=== PATIENT | female | born 1975 | race African-American/Black ===

== ENCOUNTER 2018-07-31 00:48 | Emergency (ER) | payer OTHER ==
[2018-07-31] MEDS ORDERED: IPRATROPIUM/ALBUTEROL 0.5-2.5 MG/3 ML AMPUL NEB ONE ×2 (01:28→02:01)
[2018-07-31] MEDS ORDERED: PREDNISONE 20 MG TABLET PO ONE (01:28)
--- NOTE | 2018-07-31 01:37 | ER Document Report ---
ED General - General Chief Complaint: Shortness Of Breath Stated Complaint: SHORTNESS OF BREATH Time Seen by Provider: 07/31/18 01:37 Notes: Patient is a 43-year-old female with history of asthma that presents to the emergency department for chief complaint of shortness of breath. Patient states she is been having increased shortness of breath and wheezing over the past 10 days, she has been using her albuterol and Spiriva, without much help of her symptoms. She decided come to the emergency department because she was not improving. She has had a dry cough associated with this as well. Denies noting any fevers, chills, night sweats, chest pain, nausea, vomiting or abdominal pain. Past Medical History: Asthma, CHF, diabetes mellitus, hypertension Past Surgical History: , cholecystectomy Social History: Denies tobacco, alcohol or drug use Family History: Reviewed and noncontributory for presenting illness Allergies: Reviewed, see documented allergy list. REVIEW OF SYSTEMS: Unless otherwise stated in this report the patient's positive and negative responses for review of systems for constitutional, eyes, ENT, cardiovascular, respiratory, gastrointestinal, neurological, genitourinary, musculoskeletal, and integumentary systems and related systems to the presenting problem are either as stated in the HPI or were not pertinent or were negative for the symptoms and/or complaints related to the presenting medical problem. PHYSICAL EXAMINATION: Vital signs reviewed, nursing noted reviewed. GENERAL: Obese female and in no acute distress. HEAD: Atraumatic, normocephalic. EYES: Eyes appear normal, extraocular movements intact, sclera anicteric, conjunctiva are normal. ENT: nares patent, oropharynx clear without exudates. Moist mucous membranes. NECK: Normal range of motion, supple without lymphadenopathy LUNGS: Faint expiratory wheezing noted on exam in all lung schneider and equal bilaterally. No respiratory distress. HEART: Regular rate and rhythm without murmurs ABDOMEN: Soft, nontender, normoactive bowel sounds. No rebound, guarding, or rigidity. No masses appreciated. EXTREMITIES: Nontender, good range of motion, no pitting or edema. NEUROLOGICAL: No focal neurological deficits. Moves all extremities spontaneously Motor and sensory grossly intact on exam. PSYCH: Normal mood, normal affect. SKIN: Warm, Dry, normal turgor, no rashes or lesions noted on exposed skin TRAVEL OUTSIDE OF THE [place] IN LAST 30 DAYS: No Past Medical History - Social History Smoking Status: Never Smoker Family History: Reviewed & Not Pertinent Physical Exam - Vital signs Vitals: Temp Pulse Resp BP Pulse Ox 98.7 F 74 22 H 168/104 H 94 07/31/18 00:48 07/31/18 00:48 07/31/18 00:48 07/31/18 00:48 07/31/18 00:48 Course - Re-evaluation Re-evalutation: Patient seen and examined vital signs reviewed. Laboratory data and imaging were ordered as appropriate for the patient's presenting symptoms and complaint, with consideration of any critical or life threatening conditions that may be associated with their obtained history and exam as noted above. Patient was treated with DuoNeb breathing treatments, and prednisone, patient was having nausea after breathing treatment, was given Zofran and Phenergan to help with this. Results were reviewed when available and demonstrated chest x-ray negative for acute findings The patient was re-evaluated and was improved, not hypoxic Evaluation was most consistent with acute asthma exacerbation, patient be discharged with a prescription for prednisone for 4 additional days, advised to use her albuterol inhaler every 4 hours for the next 2-3 days, and to follow-up with her primary care physician, if her symptoms worsen to return. Results were discussed with the patient at this point, after careful consideration I feel that that patient can be discharged from the emergency department, the patient was educated treatments and reasons to return to the emergency department based on their presumed diagnosis as noted above, they were advised to followup with a primary care physician in 2-3 days. Patient was agreeable to plan of care. *Note is created using voice recognition software and may contain spelling, syntax or grammatical errors. Chest X-Ray 07/31/18 01:28 IMPRESSION: 1. No acute pulmonary process identified. - Vital Signs Vital signs: Temp Pulse Resp BP Pulse Ox 98.7 F 74 24 H 168/104 H 94 07/31/18 00:48 07/31/18 00:48 07/31/18 01:53 07/31/18 00:48 07/31/18 00:48 Discharge - Discharge Clinical Impression: Acute asthma exacerbation Qualifiers: Asthma severity: unspecified severity Asthma persistence: unspecified Qualified Code(s): J45.901 - Unspecified asthma with (acute) exacerbation Condition: Stable Disposition: HOME, SELF-CARE Instructions: Asthma ([facility]) Additional Instructions: Please return to the emergency department if you have any worsening, or concern of your symptoms. Please return to the emergency department if you develop chest pain, difficulty breathing, severe abdominal pain, or ongoing vomiting. Please follow-up with your primary care physician in 2-3 days and any other recommended physicians. If prescribed, take all medications as directed. If you have any questions or concerns do not hesitate to return the emergency department for evaluation. Continue using your albuterol inhaler, 2 puffs every 4 hours for the next 3 days , and then you can reduce this to as needed. Prescriptions: Prednisone [Deltasone 20 mg Tablet] 3 tab PO DAILY 4 Days #12 tablet Referrals: YI ARMAS MD [[facility]ED STAFF] - Follow up in 3-5 days (or your primary care. )
[2018-07-31] MEDS: ALBUTEROL SULFATE 0.083% NEB 2.5 MG/3 ML AMPUL NEB SCH ×2 (01:46→02:51)
[2018-07-31] MEDS ORDERED: ONDANSETRON HCL INJ/PF 4 MG/2 ML SDV IV ONE (02:00)
[2018-07-31] MEDS ORDERED: ONDANSETRON 4 MG TAB.RAPDIS PO ONE (02:03)
--- NOTE | 2018-07-31 02:09 | RADIOLOGY REPORT (SQ) ---
EXAM DESCRIPTION: XR CHEST 1 VIEW COMPLETED DATE/TME: 07/31/2018 01:28 CLINICAL HISTORY: SOB COMPARISON: None. FINDINGS: Single frontal view of the chest. Wires and leads overlie the chest. Low lung volumes. The cardiomediastinal silhouette has normal size and contour. No consolidation, pneumothorax, or pleural effusion. No displaced rib fractures identified. Upper abdominal soft tissues are unremarkable. IMPRESSION: 1. No acute pulmonary process identified.
[2018-07-31] MEDS ORDERED: PROMETHAZINE HCL 25 MG TABLET PO ONE (02:44)
[2018-07-31 04:48] VITALS: BP 154/98
--- NOTE | 2018-07-31 10:38 | EKG REPORT ---
SEVERITY:- NORMAL ECG - SINUS RHYTHM : Confirmed by: Flora Carrillo MD 31-Jul-2018 10:38:11
== END 2018-07-31 04:16 | disposition home or self-care (01) ==
LOC: ER 00:48
DX: J45.901 Unspecified asthma with (acute) exacerbation (principal); R06.02 Shortness of breath; I50.9 Heart failure, unspecified; E11.9 Type 2 diabetes mellitus without complications; I10 Essential (primary) hypertension
CPT/HCPCS: 93005; 94640 ×2; 99285; 71045; 93010; S0119; J7512; J7620

== ENCOUNTER 2018-10-18 02:46 | Emergency (ER) | payer SELFPAY ==
[2018-10-18] MEDS ORDERED: PREDNISONE 20 MG TABLET PO ONE (04:40)
[2018-10-18] MEDS ORDERED: IPRATROPIUM/ALBUTEROL 0.5-2.5 MG/3 ML AMPUL NEB ONE (04:40)
[2018-10-18] MEDS ORDERED: IBUPROFEN 800 MG TABLET PO ONE (04:40)
--- NOTE | 2018-10-18 05:19 | RADIOLOGY REPORT (SQ) ---
EXAM DESCRIPTION: XR CHEST 2 VIEWS COMPLETED DATE/TME: 10/18/2018 04:41 CLINICAL HISTORY: 43 years, Female, cough/fever COMPARISON: None. NUMBER OF VIEWS: Two TECHNIQUE: PA and lateral views of the chest LIMITATIONS: None. FINDINGS: The lungs are clear. There are no pleural abnormalities. The cardiac silhouette and pulmonary vessels are normal. IMPRESSION: No acute cardiopulmonary disease. copyright 2010 [employer]- All Rights Reserved
--- NOTE | 2018-10-18 06:16 | ER Document Report ---
ED General - General Chief Complaint: Cold Symptoms Stated Complaint: CHILLS Time Seen by Provider: 10/18/18 03:51 Notes: Patient is a 43-year-old female presents to the emergency department chief complaint of intermittent fever T-max 101, chills, generalized body aches, cough, congestion, increased respiratory distress, 2 episodes of posttussive vomiting and 7 episodes total of diarrhea since Monday. Patient states she also has generalized chest tightness which increases when she takes a deep breath, upon movement and upon deep palpation bilateral anterior ribs. Patient states she did take an at-home albuterol treatment around 130 this morning states that that has not helped at all. Past medical history: Asthma, CHF, hypertension, diabetes, GERD Medications: Albuterol, amlodipine, HCTZ, Lasix, pantoprazole, Flonase, atorvastatin, Symbicort, farxiga, montelukast Allergies: None TRAVEL OUTSIDE OF THE [place] IN LAST 30 DAYS: No Past Medical History - General Information source: Patient - Social History Smoking Status: Never Smoker Chew tobacco use (# tins/day): No Frequency of alcohol use: None Drug Abuse: None Family History: Reviewed & Not Pertinent Patient has suicidal ideation: No Patient has homicidal ideation: No - Past Medical History Cardiac Medical History: Reports: Hx Congestive Heart Failure, Hx Hypertension Pulmonary Medical History: Reports: Hx Asthma Endocrine Medical History: Reports: Hx Diabetes Mellitus Type 2 Renal/ Medical History: Denies: Hx Peritoneal Dialysis GI Medical History: Reports: Hx Gastroesophageal Reflux Disease Past Surgical History: Reports: Hx Section, Hx Cholecystectomy Review of Systems - Review of Systems Constitutional: See HPI EENT: See HPI Cardiovascular: See HPI Respiratory: See HPI Gastrointestinal: See HPI. denies: Abdominal pain Genitourinary: denies: Burning, Dysuria Female Genitourinary: No symptoms reported Musculoskeletal: See HPI Skin: No symptoms reported Hematologic/Lymphatic: No symptoms reported Neurological/Psychological: No symptoms reported Physical Exam - Vital signs Vitals: Temp Pulse Resp BP Pulse Ox 98.4 F 84 26 H 154/117 H 95 10/18/18 02:51 10/18/18 02:51 10/18/18 02:51 10/18/18 02:51 10/18/18 02:51 - Notes Notes: GENERAL: Morbidly obese alert, interacts well. No acute distress. HEAD: Normocephalic, atraumatic. No frontal or maxillary sinus tenderness EYES: Pupils equal, round, and reactive to light. Extraocular movements intact. ENT: Oral mucosa moist, tongue midline. Nares patent, no nasal septal hematoma, TM's intact, nonerythematous, nonbulging bilaterally. Pharynx within normal limits, no palatal petechiae or exudate noted NECK: Full range of motion. Supple. Trachea midline. No lymphadenopathy appreciated LUNGS: Inspiratory and expiratory wheezes noted bilateral lung schneider, no rales, or rhonchi. No respiratory distress HEART: Regular rate and rhythm. No murmur ABDOMEN: Obese soft, non-tender. Non-distended. Bowel sounds present in all 4 quadrants. EXTREMITIES: Moves all 4 extremities spontaneously. No edema, normal radial and dorsalis pedis pulses bilaterally. No cyanosis. BACK: no cervical, thoracic, lumbar midline tenderness. No saddle anesthesia, normal distal neurovascular exam. NEUROLOGICAL: Alert and oriented x3. Normal speech. cranial nerves II through XII grossly intact PSYCH: Normal affect, normal mood. SKIN: Warm, dry, normal turgor. No rashes or lesions noted. Course - Re-evaluation Re-evalutation: After patient finished DuoNeb treatments she states she now has a sharp pain in the left side of his chest. States it feels different than her generalized chest tightness that she had when she arrived to the emergency room. Patient states she feels a lot better as far as her respiratory status is concerned. Patient's lung sounds are now clear and equal in all schneider. Discussed case with Dr. Wallace who recommends a single troponin and a repeat EKG. Patient's EKG shows a sinus rhythm at 92 with a QTC of 525. No ST segment changes noted. This is Virtually unchanged from an EKG when patient arrived to the emergency department ordered by the [facility] nurse which reveals a sinus rhythm 86 with a QTC of [address] segment changes. 10/18/18 07:12 Patient's troponin was negative. She states the sharp chest pain that she amanda cross was having is now somewhat relieved. States it is intermittent in nature. I continue to believe that this chest pain is due to her upper respiratory infection viral infection, asthma exacerbation. Discussed close follow-up with patient's primary care provider and close return precautions. 10/18/18 07:14 Patient states she has plenty of her albuterol inhaler at home. Spacer was provided to the patient in the emergency department. - Vital Signs Vital signs: Temp Pulse Resp BP Pulse Ox 98.4 F 84 26 H 154/117 H 95 10/18/18 02:51 10/18/18 02:51 10/18/18 02:51 10/18/18 02:51 10/18/18 02:51 Discharge - Discharge Clinical Impression: Bronchitis, Bronchospasm Upper respiratory infection Qualifiers: URI type: unspecified viral URI Qualified Code(s): J06.9 - Acute upper respiratory infection, unspecified Condition: Stable Disposition: HOME, SELF-CARE Instructions: Upper Respiratory Illness ([facility]), Bronchitis With Bronchospasm (Wheezing) ([facility]) Additional Instructions: As we discussed you have been seen and treated in the emergency department for an upper respiratory infection. You should continue to use your albuterol inhaler every 4 hours as needed. Please take prescription steroids as prescribed. Please make sure you keep a close eye on your blood sugar as steroids can affect your blood sugar readings. Please make sure you follow-up with your primary care provider in the next 24-48 hours. Please return to the emergency room should you have any other concerning symptoms. Prescriptions: Prednisone [Deltasone 20 mg Tablet] 3 tab PO DAILY 5 Days tablet Forms: Elevated Blood Pressure
[2018-10-18 07:59] VITALS: BP 163/92
--- NOTE | 2018-10-18 09:20 | EKG REPORT ---
SEVERITY:- ABNORMAL ECG - SINUS RHYTHM PROLONGED QT INTERVAL : Confirmed by: Vee Acosta 18-Oct-2018 09:18:43
--- NOTE | 2018-10-18 09:20 | EKG REPORT ---
SEVERITY:- ABNORMAL ECG - SINUS RHYTHM PROLONGED QT INTERVAL : Confirmed by: Vee Acosta 18-Oct-2018 09:18:47
== END 2018-10-18 07:58 | disposition home or self-care (01) ==
LOC: ER 02:46
DX: J20.9 Acute bronchitis, unspecified (principal); J06.9 Acute upper respiratory infection, unspecified; E66.01 Morbid (severe) obesity due to excess calories; I50.9 Heart failure, unspecified; I11.0 Hypertensive heart disease with heart failure; E11.9 Type 2 diabetes mellitus without complications; Z90.49 Acquired absence of other specified parts of digestive tract
CPT/HCPCS: 93005; 94640; 99284; 36415; 84484; 71046; 93010; J7512; J7620

== ENCOUNTER 2019-10-27 17:43 | Emergency (ER) | payer BC ==
--- NOTE | 2019-10-27 20:13 | ER Document Report ---
ED Medical Screen (RME) - General Chief Complaint: High Blood Pressure Stated Complaint: DIZZINESS, SHORTNESS OF BREATH Time Seen by Provider: 10/27/19 19:46 Notes: Patient is a 44-year-old female with a history of congestive heart failure, hyp ertension, type 2 diabetes and asthma who presents the emergency department with multiple complaints. Patient reports she does have a history of elevated blood pressure and is on multiple medications. Patient reports she did have a lapse in her insurance and over the past month has been cutting her medications in half. Patient reports that she never ran out of her medications but was not taking them as prescribed. She reports that she did see her primary care provider on , and was given the correct dosages of her metoprolol, amlodipine and hydrochlorothiazide. Patient reports since then she has had intermittent elevated blood pressure. Patient reports today she checked her blood pressure is 182/128. Patient reports she has had some lightheadedness some shortness of breath and some chest pain. Patient reports today she had to stop cleaning the house that she was having chest pain. TRAVEL OUTSIDE OF THE [place] IN LAST 30 DAYS: No - Related Data Allergies/Adverse Reactions: No Known Allergies Allergy (Unverified 10/27/19 19:36) Home Medications: Furosemide, metoprolol, farxiga, amlodipine, atorvastatin, hydrochlorothiazide Past Medical History - Social History Frequency of alcohol use: Social - Past Medical History Cardiac Medical History: Reports: Hx Congestive Heart Failure, Hx Hypertension Pulmonary Medical History: Reports: Hx Asthma Endocrine Medical History: Reports: Hx Diabetes Mellitus Type 2 Renal/ Medical History: Denies: Hx Peritoneal Dialysis GI Medical History: Reports: Hx Gastroesophageal Reflux Disease Past Surgical History: Reports: Hx Section, Hx Cholecystectomy Physical Exam - Vital signs Vitals: Temp Pulse Resp BP Pulse Ox 98.5 F 79 20 156/88 H 97 10/27/19 18:16 10/27/19 18:16 10/27/19 18:16 10/27/19 18:16 10/27/19 18:16 - Respiratory Respiratory status: No respiratory distress Chest status: Nontender Breath sounds: Normal Chest palpation: Normal Course - Re-evaluation Re-evalutation: 10/27/19 20:15 I have greeted and performed a rapid initial assessment of this patient. A comprehensive ED assessment and evaluation of the patient, analysis of test results and completion of the medical decision making process will be conducted by additional ED providers. - Vital Signs Vital signs: Temp Pulse Resp BP Pulse Ox 98.5 F 79 20 156/88 H 97 10/27/19 18:16 10/27/19 18:16 10/27/19 18:16 10/27/19 18:16 10/27/19 18:16
[2019-10-27 21:11] LABS: APPEARANCE,URINE CLEAR; BILIRUBIN,URINE NEGATIVE (NEGATIVE); COLOR,URINE YELLOW; GLUCOSE, URINE 50 mg/dL (NEGATIVE); KETONES,URINE NEGATIVE (NEGATIVE); LEUKOCYTE ESTERASE,URINE NEGATIVE (NEGATIVE); NITRITE,URINE NEGATIVE (NEGATIVE); PROTEIN,URINE NEGATIVE (NEGATIVE); UROBILINOGEN,URINE NEGATIVE mg/dL (<2.0)
--- NOTE | 2019-10-27 21:21 | RADIOLOGY REPORT (SQ) ---
EXAM DESCRIPTION: X-RAY CHEST TWO VIEWS CLINICAL HISTORY: 44 years, Female, cp, sob COMPARISON: None. FINDINGS: PA and lateral chest radiographs were performed at 2104 hours on 10/27/2019. The lungs are well expanded and clear. The costophrenic sulci are sharp. There is mild cardiomegaly with normal pulmonary vascularity. No acute bony abnormalities are seen. IMPRESSION: No acute cardiopulmonary disease. Mild cardiomegaly.
[2019-10-27 21:24] LABS: ABSOLUTE BASOPHILS # (AUTO) 0.1 10^3/uL (0.0-0.2); ABSOLUTE LYMPHOCYTES (AUTO) 1.1 10^3/uL (0.5-4.7); ABSOLUTE MONOCYTES (AUTO) 0.5 10^3/uL (0.1-1.4); ABSOLUTE NEUT (AUTO) 7.8 10^3/uL (1.7-8.2); BASOPHILS % (AUTO) 0.9 % (0-2); EOSINOPHILS % (AUTO) 0.3 % (0-6); HEMATOCRIT 41.5 % (36.0-47.0); HEMOGLOBIN 13.8 g/dL (12.0-15.5); LYMPHOCYTES % (AUTO) 11.6 % (13-45); MEAN CORPUSCULAR HEMOGLOBIN 27.6 pg (27.0-33.4); MEAN CORPUSCULAR HGB CONC 33.2 g/dL (32.0-36.0); MEAN CORPUSCULAR VOLUME 83 fl (80-97); MONOCYTES % (AUTO) 5.5 % (3-13); PLATELET COUNT 372 10^3/uL (150-450); RED BLOOD COUNT 4.98 10^6/uL (3.72-5.28); RED CELL DISTRIBUTION WIDTH 13.7 % (11.5-14.0); SEGMENTED NEUTROPHILS % (AUTO) 81.7 % (42-78); TOTAL CELLS COUNTED % (AUTO) 100 %; WHITE BLOOD COUNT 9.5 10^3/uL (4.0-10.5)
[2019-10-27 21:38] LABS: ALBUMIN 4.2 g/dL (3.5-5.0); ALKALINE PHOSPHATASE 68 U/L (38-126); ANION GAP 11 (5-19); ASPARTATE AMINO TRANSFERASE 35 U/L (14-36); BILIRUBIN,TOTAL 0.5 mg/dL (0.2-1.3); BLOOD UREA NITROGEN 26 mg/dL (7-20); CARBON DIOXIDE 32 mmol/L (22-30); CHLORIDE 94 mmol/L (98-107); GLUCOSE 245 mg/dL (75-110); POTASSIUM 3.9 mmol/L (3.6-5.0)
[2019-10-27 21:50] LABS: NT PRO BNP 169 pg/mL (<125)
[2019-10-27 21:55] LABS: TROPONIN I < 0.012 ng/mL
--- NOTE | 2019-10-27 21:58 | EKG REPORT ---
SEVERITY:- ABNORMAL ECG - SINUS RHYTHM PROBABLE LEFT ATRIAL ABNORMALITY PROBABLE LEFT VENTRICULAR HYPERTROPHY BORDERLINE PROLONGED QT INTERVAL : Confirmed by: Parviz Arriaga MD 27-Oct-2019 21:57:54
[2019-10-27] MEDS ORDERED: HYDRALAZINE HCL INJ/PF 20 MG/1 ML SDV IV ONE (22:45)
--- NOTE | 2019-10-27 23:28 | ER Document Report ---
Entered by JULIENNE CARMONA SCRIBE 10/27/19 7974 Acting as scribe for:MOUNA MENDOZA IV, MD ED General - General Chief Complaint: High Blood Pressure Stated Complaint: DIZZINESS, SHORTNESS OF BREATH Time Seen by Provider: 10/27/19 19:46 Primary Care Provider: MAGALI SMITH PA [Primary Care Provider] - Follow up as needed Mode of Arrival: Ambulatory Information source: Patient Notes: This 44 year old female with hypertension presents to the emergency department today with complaints of elevated blood pressures. Patient states that she is on several hypertension medications including furosemide, metoprolol, HCTZ, and hydralazine. Patient states that prior to arrival today her pressure was 182/128. Patient states that for about the last month she has not been taking her medications as prescribed because she had a lapse in her insurance and she was having to take "half her pills to make sure she had enough". Patient reports some symptomatic hypertension today prior to arrival stating she had shortness of breath and lightheadedness prior to arrival. TRAVEL OUTSIDE OF THE [place] IN LAST 30 DAYS: No - Related Data Allergies/Adverse Reactions: No Known Allergies Allergy (Unverified 10/27/19 19:36) Home Medications: Furosemide, metoprolol, farxiga, amlodipine, atorvastatin, hydrochlorothiazide Past Medical History - General Information source: Patient - Social History Smoking Status: Never Smoker Cigarette use (# per day): No Frequency of alcohol use: Social Drug Abuse: None Lives with: Family Family History: Reviewed & Not Pertinent Patient has suicidal ideation: No Patient has homicidal ideation: No - Past Medical History Cardiac Medical History: Reports: Hx Congestive Heart Failure, Hx Hypertension Pulmonary Medical History: Reports: Hx Asthma Endocrine Medical History: Reports: Hx Diabetes Mellitus Type 2 GI Medical History: Reports: Hx Gastroesophageal Reflux Disease Past Surgical History: Reports: Hx Section, Hx Cholecystectomy Review of Systems - Review of Systems Constitutional: No symptoms reported EENT: No symptoms reported Cardiovascular: See HPI, Dizziness, Other - elevated blood pressures Respiratory: See HPI, Short of breath Gastrointestinal: No symptoms reported Genitourinary: No symptoms reported Female Genitourinary: No symptoms reported Musculoskeletal: No symptoms reported Skin: No symptoms reported Hematologic/Lymphatic: No symptoms reported Neurological/Psychological: No symptoms reported -: Yes All other systems reviewed and negative Physical Exam - Vital signs Vitals: Temp Pulse Resp BP Pulse Ox 98.5 F 79 20 156/88 H 97 10/27/19 18:16 10/27/19 18:16 10/27/19 18:16 10/27/19 18:16 10/27/19 18:16 - Notes Notes: Physical Exam: General: Alert, morbidly obese. HEENT: Normocephalic. Atraumatic. PERRL. Extraocular movements intact. Oropharynx clear. Neck: Supple. Non-tender. Respiratory: No respiratory distress. Clear and equal breath sounds bilaterally. Cardiovascular: Regular rate and rhythm. Abdominal: Morbidly obese. No distension. Normal Bowel Sounds. Back: No gross abnormalities. Extremities: Moves all four extremities. Upper extremities: Normal inspection. Normal ROM. Lower extremities: Normal inspection. No edema. Normal ROM. Neurological: Normal cognition. AAOx4. Normal speech. Psychological: Normal affect. Normal Mood. Skin: Warm. Dry. Normal color. Course - Re-evaluation Re-evalutation: 10/27/19 23:45 Blood pressure is now 146/81. Results of ED MSE discussed with patient. All questions were answered prior to discharge. Emergency signs and symptoms, reasons to return to the emergency department discussed with patient. - Vital Signs Vital signs: Temp Pulse Resp BP Pulse Ox 98.5 F 79 27 H 146/81 H 96 10/27/19 18:16 10/27/19 18:16 10/27/19 23:31 10/27/19 23:31 10/27/19 23:31 - Laboratory Result Diagrams: 10/27/19 21:11 10/27/19 21:11 Laboratory results interpreted by me: 10/27/19 10/27/19 10/27/19 20:58 21:11 21:11 Lymph % (Auto) 11.6 L Seg Neutrophils % 81.7 H Chloride 94 L Carbon Dioxide 32 H BUN 26 H Glucose 245 H NT-Pro-B Natriuret Pep Urine Glucose (UA) 50 H 10/27/19 21:11 Lymph % (Auto) Seg Neutrophils % Chloride Carbon Dioxide BUN Glucose NT-Pro-B Natriuret Pep 169 H Urine Glucose (UA) - EKG Interpretation by Me Additional EKG results interpreted by me: 10/27/19 23:47 EKG obtained on 10/27/2019 at 2022 hrs. was interpreted by this MD. Findings: Normal sinus rhythm, rate 72, normal axis, P waves proceed QRS complexes, QRS complex appears narrow, there are no obvious patterns of ST segment elevation or depression to suggest acute myocardial ischemia or infarction. Impression sinus rhythm with nonspecific ST segments. Discharge - Discharge Clinical Impression: Elevated blood pressure reading Condition: Good Disposition: HOME, SELF-CARE Instructions: High Blood Pressure ([facility]) Additional Instructions: Return to the Emergency Department without delay if any worse. HOME CARE INSTRUCTIONS & INFORMATION: Thank you for choosing us for your medical needs. We hope you're satisfied with the care you received. After you leave, you must properly care for your problem and, at the same time, observe i ts progress. Any condition can change. Some illnesses can change rapidly over hours or days. If your condition worsens, return to the Emergency Department or see your physician promptly. ABOUT YOUR X-RAYS AND EKG'S: If you had an EKG or X-rays taken, they have been read by the Emergency Physician. The X-rays and EKG's will also be read by a Radiologist or [employer] within 24 hours. If discrepancies are noted, you will be notified by telephone. Please be certain the ED has a correct telephone number & address where you can be reached. Also, realize that some fractures or abnormalities do not show up on initial X-rays. If your symptoms continue, see your physician. ABOUT YOUR LABORATORY TEST: If you had laboratory tests, the results have been reviewed by the Emergency Physician. Some test results (for example cultures) may not be available for several days. You will be contacted if any test result shows you need additional treatment. Please be certain the ED has a correct telephone number and address where you can be reached. ABOUT YOUR MEDICATIONS: You will receive instructions on how to take your medicine on the prescription label you receive. Additional information may be provided by the Pharmacy. If you have questions afterwards, call the ED for clarification or further instructions. Some prescribed medications may cause drowsiness. Do not perform tasks such as driving a car or operating machinery without consulting your Pharmacist. If you feel you need a refill of pain medication, your condition will need re-evaluation. Please do not call for a refill of any medication. ABOUT YOUR SIGNATURE: Signature of this document acknowledges to followin. Understanding that you received emergency treatment and that you may be released before al medical problems are known or treated. Please be certain the ED has a correct phone number & address where you can be reached. 2. Acknowledgement that you will arrange for follow-up care as recommended. 3. Authorization for the Emergency Physician to provide information to your follow-up Physician in order to maximize your care. AT ANY TIME, IF YOUR SYMPTOMS CHANGE SIGNIFICANTLY OR WORSEN OR YOU DEVELOP NEW SYMPTOMS, RETURN TO THE EMERGENCY DEPARTMENT IMMEDIATELY FOR RE-EVALUATION. OUR GOAL IS TO PROVIDE EXCELLENT MEDICAL CARE! WE HOPE THAT WE HAVE MET YOUR EXPECTATIONS DURING YOUR EMERGENCY DEPARTMENT VISIT AND THAT YOU FEEL YOU HAVE RECEIVED EXCELLENT CARE! Referrals: MAGALI SMITH PA [Primary Care Provider] - Follow up as needed I personally performed the services described in the documentation, reviewed and edited the documentation which was dictated to the scribe in my presence, and it accurately records my words and actions.
[2019-10-27 23:54] VITALS: BP 142/82
== END 2019-10-28 00:31 | disposition home or self-care (01) ==
LOC: ER 17:43
DX: I11.0 Hypertensive heart disease with heart failure (principal); I50.9 Heart failure, unspecified; T50.1X6A Underdosing of loop [high-ceiling] diuretics, initial encounter; T44.7X6A Underdosing of beta-adrenoreceptor antagonists, initial encounter; T50.2X6A Underdosing of carbonic-anhydrase inhibitors, benzothiadiazides and other diuretics, initial encounter; T46.5X6A Underdosing of other antihypertensive drugs, initial encounter; Z91.120 Patient's intentional underdosing of medication regimen due to financial hardship; Z91.14 Patient's other noncompliance with medication regimen; J45.909 Unspecified asthma, uncomplicated; R06.02 Shortness of breath; R42 Dizziness and giddiness; E11.9 Type 2 diabetes mellitus without complications; Z79.899 Other long term (current) drug therapy; Z79.84 Long term (current) use of oral hypoglycemic drugs
CPT/HCPCS: 99284; 96374; 36415; 85025; 80053; 81001; 84484; 83880; 71046; 93005; 93010; J0360